=== PATIENT | female | born 1940 | race Caucasian/White ===

== ENCOUNTER 2017-04-10 14:43 | Emergency (ER) | payer MEDICARE ==
[~2017-04-10 14:43] MED LIST: ATOR20TA9 PO; BUSP10TA PO; CHOL10002 PO; CYCL1DRO EACHEYE; DEXL60CA PO; DIPH1TAB6 PO; ESTR0.6246 PO; FLAX100016 PO; GABA300C10 PO; GLUC1500 PO; HYDR25TA6 PO; KRIL500C PO; L.AC1CAP6 PO; LOSA100T6 PO; METR500T PO; OXYC5TAB3 PO; POTA20TA91 PO; RIVA1PAT23 TD
== END 2017-04-10 18:10 | disposition home or self-care (01) ==
LOC: ED 14:43
DX: S06.0X9A Concussion with loss of consciousness of unspecified duration, initial encounter (principal); I10 Essential (primary) hypertension; Z88.6 Allergy status to analgesic agent; R07.9 Chest pain, unspecified; W01.0XXA Fall on same level from slipping, tripping and stumbling without subsequent striking against object, initial encounter; Y93.01 Activity, walking, marching and hiking; Y99.8 Other external cause status; Y92.89 Other specified places as the place of occurrence of the external cause
CPT/HCPCS: 70450; 99284